=== PATIENT | male | born 1980 | race Caucasian/White ===

== ENCOUNTER 2016-06-20 21:46 | Emergency (ER) | payer OTHER ==
[~2016-06-20] VITALS: Ht 167.6 cm; Wt 72.7 kg
[2016-06-20 21:54] VITALS: TEMP 98.7
[2016-06-20 22:12] LABS: BASO % 0.2 % (0.0-2.0); EOS # 0.2 (0.0-0.7); EOS % 1.9 % (0-4.0); GRAN # 7.8 (1.4-6.5); HEMATOCRIT 46.9 % (42.0-52.0); HEMOGLOBIN 16.2 g/dl (13.5-18.0); LYMPH # 1.8 (1.2-3.4); LYMPH % 16.9 % (20.0-51.0); MEAN CELL VOLUME 89 fl (80.0-100.0); MEAN CORPUSCULAR HEMOGLOBIN 31 pg (27.0-31.0); MEAN CORPUSCULAR HGB CONC 35 g/dl (33.0-37.0); MEAN PLATELET VOLUME 12.1 fl (7.4-10.4); MONO # 0.8 (0.1-0.6); MONO % 7.7 % (1.7-9.3); PLATELET COUNT 160 K/mm3 (130-400); RED BLOOD COUNT 5.26 M/mm3 (4.20-5.60); REDCELL DISTRIBUTION WIDTH-CV 12.2 % (11.5-14.5); WHITE BLOOD COUNT 10.7 K/mm3 (4.8-10.8)
[2016-06-20 22:16] LABS: PROTHROMBIN TIME 10.9 SECONDS (9.7-12.8)
[2016-06-20 22:19] LABS: PARTIAL THROMBOPLASTIN TIME 37.7 SECONDS (26.0-37.0)
[2016-06-20 22:20] LABS: ALANINE AMINOTRANSFERASE 53 U/L (21-72); ALBUMIN 4.2 gm/dL (3.5-5.0); ALKALINE PHOSPHATASE 114 U/L (50-136); ANION GAP 14 mmol/L (7-16); BILIRUBIN,TOTAL 0.6 mg/dL (0.0-1.0); BLOOD UREA NITROGEN 12 mg/dL (9-20); CALCIUM 9.2 mg/dL (8.4-10.2); CARBON DIOXIDE 23 mmol/L (22-30); CHLORIDE 103 mmol/L (98-107); CREATININE, serum 1.11 mg/dL (0.66-1.25); GLUCOSE 129 mg/dL (74-106); POTASSIUM 3.7 mmol/L (3.4-5.0); SODIUM 139 mmol/L (137-145); TOTAL PROTEIN 7.4 gm/dL (6.4-8.2)
[2016-06-20 22:37] LABS: TROPONIN-I < 0.012 ng/mL (0.000-0.034)
[2016-06-20 22:51] VITALS: BP 111/79; PULSE 91
== END 2016-06-20 23:00 | disposition home or self-care (01) ==
LOC: COL.ER 21:46
PROVIDERS: Family Medicine
DX: K29.70 Gastritis, unspecified, without bleeding (principal)
CPT/HCPCS: C9113

== ENCOUNTER 2017-07-03 22:04 | Emergency (ER) | payer SELFPAY ==
[~2017-07-03] VITALS: Ht 170.2 cm; Wt 85.9 kg
[2017-07-03 22:20] VITALS: BP 101/68; TEMP 98.2
[2017-07-04] MEDS ORDERED: PREDNISONE20 MG PO (01:21)
[2017-07-04] MEDS ORDERED: ILOTYCIN5 MG/GM OP (01:28)
[2017-07-04 01:40] VITALS: PULSE 59
== END 2017-07-04 01:40 | disposition home or self-care (01) ==
LOC: COL.ER 22:04
DX: H10.33 Unspecified acute conjunctivitis, bilateral (principal); Z90.89 Acquired absence of other organs; Z87.891 Personal history of nicotine dependence
CPT/HCPCS: J7512

== ENCOUNTER 2020-10-04 21:44 | Emergency (ER) | payer SELFPAY ==
[~2020-10-04] VITALS: Ht 175.3 cm; Wt 81.8 kg
[~2020-10-04 21:44] MED LIST: ILOTYCIN5 MG/GM OP; PREDNISONE20 MG PO
[2020-10-04 23:06] VITALS: BP 116/64; PULSE 72; TEMP 97.9
== END 2020-10-04 23:00 | disposition home or self-care (01) ==
LOC: COL.ER 21:44
DX: U07.1 COVID-19 (principal); K29.70 Gastritis, unspecified, without bleeding; H10.9 Unspecified conjunctivitis